=== PATIENT | male | born 1990 | race Two or more races ===

== ENCOUNTER 2017-04-04 10:27 | Emergency (ER) | payer OTHER ==
[~2017-04-04] VITALS: Ht 177.8 cm; Wt 72.6 kg
[2017-04-04 10:33] VITALS: BP 142/82
[2017-04-04] MEDS ORDERED: KETOROLAC TROMETH 30 MG/ML 1ML VIAL IV ONE ×2 (12:30)
== END 2017-04-04 12:25 | disposition home or self-care (01) ==
LOC: ER 10:27
DX: S09.90XA Unspecified injury of head, initial encounter (principal); Z88.8 Allergy status to other drugs, medicaments and biological substances; W17.89XA Other fall from one level to another, initial encounter; Y93.89 Activity, other specified; Y92.89 Other specified places as the place of occurrence of the external cause; Y99.8 Other external cause status
CPT/HCPCS: 70450; 99284; J1885